=== PATIENT | female | born 1975 | race Caucasian/White ===

== ENCOUNTER 2021-03-08 18:13 | Emergency (ER) | payer MEDICAID, SELFPAY ==
[2021-03-08 18:28] VITALS: BP 158/98; PULSE 78; RESP 18; TEMP 36.3; O2SAT 95; BMI 36.8
== END 2021-03-08 19:05 | disposition left against medical advice (07) ==
PROVIDERS: Emergency Provider Emergency Medicine; PCP Internal Medicine
DX: R03.0 Elevated blood-pressure reading, without diagnosis of hypertension (principal)
CPT/HCPCS: 99281; 99282

== ENCOUNTER → 2021-05-31 09:33 | Outpatient (BNVA) | payer MEDICAID, SELFPAY | PROVIDERS: PCP Internal Medicine; Visit Provider Nurse Practitioner Family | DX: M54.16 Radiculopathy, lumbar region (principal); M53.3 Sacrococcygeal disorders, not elsewhere classified | CPT/HCPCS: 99202 ==

== ENCOUNTER 2021-08-08 13:00 | Outpatient (RCR) | payer MEDICAID, SELFPAY ==
--- NOTE | 2021-06-16 13:40 | MHC.PT.EP ---
[facility] [place] [address] Tia Hernandez [address] [phone] F: [phone] F: [phone] F: [phone] F: [phone] Physical Therapy Plan of Care Date of Evaluation: Date of Surgery: N/A Diagnosis: sacroccygeal disorders Assessment: pt's signs and symptoms appear to have both lumbar radiculopathy component as noted by reduced strength, sensation, and patellar reflex as well as SI component as seen by poor SI alignment and reproduction w/ SI testing. pt presents to physical therapy with pain, decreased range of motion, decreased strength, impaired functional mobility, impaired postural awareness, and gait deviations. pt is a fair candidate for skilled PT due to age, potential remediation of impairments, typical disease/condition progression and prognosis, comorbidities, and motivation. pt would benefit from tailored strengthening and stretching exercise program, functional training, gait training, postural re-training, neuromuscular re-education, modalities as needed for pain, equipment safety demonstration. Frequency and Duration: The patient will be seen 2x/wk for 6 wks Short Term Goals: pt will be I w/ HEP to promote self-management of condition. pt will demo proper sitting posture w/ lumbar roll to promote neutral spine w/ seated ADLs. pt will improve lumbar flexion by 25% to improve ability to don and doff socks/shoes. [place] Cleaner Goals: pt will report a statistically significant improvement in self-reported outcome measure, K[place]ney, to promote return to PLOF. pt will report <3/10 low back pain w/ standing for >15 minutes to promote return to dishes and meal prep. Treatment Plan: Modalities to reduce pain, spasms and effusion. Manual therapy to restore motion and function. Therapeutic exercise to improve strength and flexibility. Neuromuscular re-education for posture and balance. Therapeutic activities to return to functional activities of daily living. Electronically signed by: Sangita Snow PT, DPT Please sign and return to therapist. Thank you for your referral.
--- NOTE | 2021-08-28 15:01 | MHC.PT.DC ---
[facility] [place] Office [place] Office [place] Office [address] Tia Hernandez 140 [facility] [phone] F: [phone] F: [phone] F: [phone] F: [phone] Physical Therapy Discharge Report Diagnosis: sacroccygeal disorders Date of Surgery: N/A Date of Evaluation: 06/16/21 Date of Discharge: 08/28/21 Treatments to Date: 7 Cancellations to Date: 9 No Shows to Date: 3 Discharge Status: Visit Non-compliance Discharge Summary: The patient has had poor visit compliance due to multiple factors including sickness, transportation, and no call/no show. She has cancelled a total of 9 visits and no showed 3 visits. She is being discharged from this physical therapy plan of care secondary to visit non-compliance. Electronically signed by: Sangita Snow PT, DPT Please sign and return to therapist. Thank you for your referral.
== END 2021-08-28 15:01 | disposition home or self-care (01) ==
LOC: HO.PT 13:00
PROVIDERS: PCP Internal Medicine; Visit Provider Nurse Practitioner Family
DX: M53.3 Sacrococcygeal disorders, not elsewhere classified (principal)
CPT/HCPCS: 97014; 97110; 97140; 97162

== ENCOUNTER 2022-01-19 12:55 | Emergency (ER) | payer OTHER, SELFPAY ==
--- NOTE | ~2022-01-19 | XR_ITS ---
EXAMINATION: XR CERVICAL SPINE CLINICAL INFORMATION: Neck pain COMPARISON: None TECHNIQUE: AP, lateral, swimmer's lateral, open-mouth odontoid, Fuchs view cervical spine FINDINGS: The C1-C7 vertebral bodies can be visualized on the lateral projections. Suboptimal visualization of C7 due to overlying structures. Straightening of the normal cervical lordosis. No subluxation. Atlantodens interval and C1-C2 alignment are maintained. No fracture or prevertebral soft tissue swelling identified. Intervertebral disc heights are maintained. Visualized lung apices grossly clear. XR/XR cervical spine 3V IMPRESSION: 1. No subluxation or fracture. 2. Preserved intervertebral disc heights.
[2022-01-19 14:16] VITALS: BP 192/125; PULSE 91; RESP 20; TEMP 36.5; O2SAT 95; BMI 37.8
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
[2022-01-19] MEDS: Ibuprofen 600 MG TABLET PO (17:41)
[2022-01-19 17:44] VITALS: BP 194/117; PULSE 97; RESP 18; TEMP 37.2; O2SAT 97
[2022-01-19] MEDS: Cyclobenzaprine HCl 10 MG TABLET PO (19:30)
--- NOTE | 2022-01-19 20:11 | PC.NURSE ---
Reviewed discharge instructions with pt. pt verbalized understanding. Reported to RN car
== END 2022-01-19 20:14 | disposition home or self-care (01) ==
PROVIDERS: Emergency Provider Emergency Medicine; PCP Physician Assistant
DX: S13.4XXA Sprain of ligaments of cervical spine, initial encounter (principal); M54.2 Cervicalgia; M54.50 Low back pain, unspecified; X58.XXXA Exposure to other specified factors, initial encounter; Y93.9 Activity, unspecified; Y92.9 Unspecified place or not applicable; Y99.9 Unspecified external cause status; Z79.899 Other long term (current) drug therapy
CPT/HCPCS: 72040; 99283; 99284

== ENCOUNTER 2022-02-07 19:28 | Emergency (ER) | payer MEDICAID, SELFPAY ==
--- NOTE | ~2022-02-07 | XR_ITS ---
EXAMINATION: XR CHEST CLINICAL INFORMATION: Chest pain COMPARISON: Chest radiograph 11/16/2014 TECHNIQUE: Frontal view of the chest was obtained. FINDINGS: No significant abnormality is noted involving the heart, lungs, mediastinum, bony thorax or soft tissues. XR/XR chest 1V IMPRESSION: Unremarkable examination.
--- NOTE | ~2022-02-07 | CT_ITS ---
EXAMINATION: CT ANGIOGRAM OF THE CHEST WITH AND WITHOUT CONTRAST (CT PULMONARY ANGIOGRAM FOR PE) CLINICAL INFORMATION: Reason for Exam CHEST PAIN ? PE COMPARISON: 11/16/2014 TECHNIQUE: Prior to contrast administration, noncontrast localization images were obtained. Subsequently, multidetector volumetric imaging was performed from the thoracic inlet to below the diaphragms following the administration of 65 mL Omnipaque 350 intravenous contrast. No contrast reaction reported Sagittal, coronal, and MIP oblique sagittal reformatted images were obtained on the CT workstation, uploaded to PACS, and reviewed. This CT examination was performed using dose optimization techniques as appropriate, variously including the following: *Automated exposure control *Adjustment of mA and/or kV according to patient size (this includes techniques or standardized protocols for targeted exams where dose is matched to indication/reason for exam; i.e. extremities or head) *Use of iterative reconstruction technique Total exam dose-length product 357 mGy-cm FINDINGS: QUALITY OF STUDY/CONTRAST BOLUS: Satisfactory. PULMONARY ARTERIES: No central or segmental pulmonary emboli. THORACIC AORTA: No aneurysm or dissection. LUNG: No focal consolidation, nodules or masses. The central airways are patent. PLEURA: No pleural effusion or pneumothorax. MEDIASTINUM: Normal heart size. No pericardial effusion. No hilar or mediastinal lymphadenopathy. No evidence of septal bowing or right heart strain. CHEST WALL/AXILLA: No axillary or internal mammary lymphadenopathy. OSSEOUS STRUCTURES: No acute or suspicious osseous abnormality. Mild degenerative changes of the spine. UPPER ABDOMEN: Unremarkable. No reflux of contrast into the hepatic veins to suggest elevated right heart pressures. CT/CT angio chest PE protocol IMPRESSION: No pulmonary embolism or other acute intrathoracic abnormality. VTE: negative
[2022-02-07 19:46] VITALS: BP 186/123; PULSE 87; RESP 18; TEMP 36.8; O2SAT 99; BMI 36.6
[2022-02-07 19:50] VITALS: BP 197/110
--- NOTE | 2022-02-07 19:51 | ECG_ITS ---
Test Reason : CHEST PAIN Blood Pressure : / mmHG Vent. Rate : 087 BPM Atrial Rate : 087 BPM P-R Int : 174 ms QRS Dur : 086 ms QT Int : 392 ms P-R-T Axes : 034 -18 031 degrees QTc Int : 471 ms Normal sinus rhythm Moderate voltage criteria for LVH, may be normal variant ( R in aVL , Christopher product ) Borderline ECG When compared with ECG of 16-NOV-2014 15:00, Nonspecific T wave abnormality has replaced inverted T waves in Inferior leads Nonspecific T wave abnormality no longer evident in Anterior leads Referred By: Generic ED Physician Electronically Signed By:HÉCTOR MCCOY
--- NOTE | 2022-02-07 20:13 | ED.CHESTPAIN ---
HPI - Chest Pain General Chief Complaint: Chest Pain Stated Complaint: chest pain, difficulty breathing Time Seen by Provider: 02/07/22 20:12 History of Present Illness HPI narrative: Patient is a 46-year-old female present today with having chest pain over left chest over the last 3 days. The pain is constant nonradiating associated with shortness of breath no diaphoresis. Positive history of hypertension high cholesterol. No history of smoking no family history of GA no history of diabetes. 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 Currently off of medications. Patient denies any fever chills coughing congestion upper respiratory symptoms. No diaphoresis. Chest pain is not made worse with deep breath. Patient is from home. No recent travel. No leg pain. Related Data Home Medications Medication Instructions Recorded Confirmed amlodipine 10 mg tablet 10 mg PO DAILY 05/31/21 05/31/21 ergocalciferol (vitamin D2) 1,250 1,250 mcg PO QWEEK 05/31/21 05/31/21 mcg (50,000 unit) capsule hydrochlorothiazide 25 mg tablet 25 mg PO DAILY 05/31/21 05/31/21 ibuprofen 800 mg tablet 800 mg PO TID 05/31/21 05/31/21 lorazepam 0.5 mg tablet 0.5 mg PO DAILY PRN 05/31/21 05/31/21 losartan 100 mg tablet 100 mg PO DAILY 05/31/21 05/31/21 losartan 25 mg tablet 25 mg PO DAILY 05/31/21 05/31/21 naloxone 4 mg/actuation nasal 1 spray intranasal ONCE PRN 05/31/21 05/31/21 spray (Narcan) oxycodone-acetaminophen 5 mg-325 1 tab PO TID PRN 05/31/21 05/31/21 mg tablet propranolol 60 mg capsule,24 60 mg PO DAILY 05/31/21 05/31/21 hr,extended release sumatriptan succinate 50 mg tablet 50 mg PO 05/31/21 05/31/21 topiramate 25 mg tablet 25 mg PO DAILY 05/31/21 05/31/21 Previous Rx's Medication Instructions Recorded cyclobenzaprine 10 mg tablet 10 mg PO TID PRN muscle spasm #14 01/19/22 tabs Allergies Allergy/AdvReac Type Severity Reaction Status Date / Time lisinopril [LISINOPRIL] Allergy Intermediate COUGH Verified 02/07/22 19:50 Review of Systems Review of Systems: Positive chest pain constant [facility] Past Medical History Attestation statement: The following information was validated with the patient. Social History Social History Advance Directives: No Advance Directives Information Provided: Yes Physical Exam Vital Signs: Vital Signs: Last Vital Signs Temp 97.9 F 02/08/22 00:27 Pulse 91 02/08/22 00:27 Resp 14 02/08/22 00:27 BP 157/104 H 02/08/22 00:27 Pulse Ox 93 02/08/22 00:27 O2 Del Method 02/08/22 00:27 BMI result Body Mass Index 36.6 Appearance: Alert. Oriented X3. No acute distress. Eyes: Pupils equal, round and reactive to light. ENT: Pharynx normal. Neck: Normal inspection. Neck supple. No lymph nodes noted. No crepitus CVS: Normal heart rate and rhythm. Pulses normal. Normal S1 and S2 Respiratory: No respiratory distress. Breath sounds normal. No Wheezing. No rales Abdomen: Soft and nontender. No rigidity. No distention. good BS x4 Skin: Skin warm and dry. Normal skin color. Normal skin turgor. Extremities: No lower extremity edema. Neurovascular intact to all extremities. No Lacerations. No Rash Neuro: Oriented X 3. No motor deficit. No sensory deficit. Moving all extermities. No slurred speech MDM - Chest Pain MDM Narrative Medical decision making narrative: Patient has chest pain that is atypical. Positive previous history DVT in the past. CTA of the chest was grossly negative for any acute evidence of pulmonary emboli, pneumonia, pneumothorax, rib fractures. History not consistent with ACS. Patient's troponin is negative. EKG showed a sinus pattern heart rate is 80 SC QRS QT within normal limits there is no acute ST segment elevation. In the setting of a normal EKG. 46 years old atypical history negative troponin heart score is less than 3. Will discharge patient Differential Diagnosis Differential diagnosis: Likely chest pain Medical Records Data Attestation: I reviewed the patient's medical records. Lab Data Attestation: I reviewed the patient's lab results. Result diagrams: 02/07/22 22:38 02/07/22 22:38 Labs: Lab Results 02/07/22 02/07/22 02/07/22 Range/Units 22:38 22:38 22:38 WBC 13.4 H (4.8-10.8) X10*3/uL RBC 5.45 (4.20-5.50) X10*6/uL Hgb 14.0 (12.0-16.0) g/dl Hct 42.8 (37.0-47.0) % MCV 78.5 L (80.0-98.0) fL MCH 25.7 L (27.0-33.0) pg MCHC 32.7 (31.0-35.0) g/dl RDW 14.3 (11.0-16.0) % Plt Count 332 (160-400) X10*3/uL MPV 9.6 (9.4-12.3) fL Immature Gran % (Auto) 0.7 H (0.0-0.4) % Neut % (Auto) 69.0 (45-73) % Lymph % (Auto) 20.8 (20-40) % [place] % (Auto) 5.8 (2-11) % Eos % (Auto) 3.1 (0-4) % Baso % (Auto) 0.6 (0-2) % Lymph # (Auto) 2.8 (1.2-4.9) X10*3/uL [place] # (Auto) 0.8 (0.1-1.2) X10*3/uL Eos # (Auto) 0.4 (0.0-0.4) X10*3/uL Baso # (Auto) 0.1 (0.0-0.2) X10*3/uL Abs Immat Gran (auto) 0.10 H (0.00-0.03) X10*3/uL Absolute Neuts (auto) 9.2 H (2.0-8.3) x10*3/uL Absolute Nucleated RBC 0.000 (0.0-0.012) X10*3/uL Nucleated RBC % (auto) 0.0 (0.0-0.2) /100WBC Sodium 139 (135-145) mmol/L Potassium 4.0 (3.3-5.1) mmol/L Chloride 102 (96-108) mmol/L Carbon Dioxide 24 (22-29) mmol/L Anion Gap 17 (12-20) BUN 11 (9-16) mg/dL Creatinine 0.68 (0.5-1.4) mg/dL Estim Creat Clear Calc 119.1 Estimated GFR > 60 Random Glucose 91 (60-115) mg/dL Calcium 9.7 (8.4-10.2) mg/dL Troponin I High Sens 3.8 (<3.5-17.0) ng/L Discharge Plan Discharge Clinical Impression: Chest pain Patient Disposition: Home, Self-Care Instructions: Chest Pain (DC), Hypertension (ED) Prescriptions: No Action cyclobenzaprine 10 mg tablet 10 mg PO TID PRN (Reason: muscle spasm) Qty: 14 0RF hydrochlorothiazide 25 mg tablet 25 mg PO DAILY topiramate 25 mg tablet 25 mg PO DAILY oxycodone-acetaminophen 5-325 mg tablet 1 tab PO TID PRN losartan 25 mg tablet 25 mg PO DAILY ergocalciferol (vitamin D2) 1,250 mcg (50,000 unit) capsule 1,250 mcg PO QWEEK lorazepam 0.5 mg tablet 0.5 mg PO DAILY PRN propranolol 60 mg capsule,extended release 24 hr 60 mg PO DAILY naloxone [Narcan] 4 mg/actuation spray,non-aerosol 1 spray intranasal ONCE PRN ibuprofen 800 mg tablet 800 mg PO TID losartan 100 mg tablet 100 mg PO DAILY amlodipine 10 mg tablet 10 mg PO DAILY sumatriptan succinate 50 mg tablet 50 mg PO Referrals: Opal Pack PA [Primary Care Provider] -
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
--- NOTE | 2022-02-07 21:03 | PC.NURSE ---
Pt. stable, with no distress, on php wordpress developer and SPO2 monitor at this time.
--- NOTE | 2022-02-07 21:33 | PC.NURSE ---
Multiple attempts made by Lucian De Santiago RN for IV access and ultrasound-guided IV access. IV access unable to be obtained. Provider notified
--- NOTE | 2022-02-07 21:44 | PC.NURSE ---
WILFRED Berry placed 18 in (R) AC via ultrasound-guidance at bedside
--- NOTE | 2022-02-07 22:42 | PC.NURSE ---
Labs sent as ordered. BP 218/144 - MD Antonio notified and awaiting orders at this time.
[2022-02-07 22:45] LABS: MANUAL DIFF FLAG NO
[2022-02-07 22:46] LABS: Basophils Absolute Auto 0.1 X10*3/uL (0.0-0.2); Basophils Percent Auto 0.6 % (0-2); Eosinophils Absolute Auto 0.4 X10*3/uL (0.0-0.4); Eosinophils Percent Auto 3.1 % (0-4); Hematocrit 42.8 % (37.0-47.0); Imm Gran Pct Auto 0.7 % (0.0-0.4); Lymphocytes Absolute Auto 2.8 X10*3/uL (1.2-4.9); Lymphocytes Percent Auto 20.8 % (20-40); Mean Corpuscular HGB Conc 32.7 g/dl (31.0-35.0); Mean Corpuscular Hemoglobin 25.7 pg (27.0-33.0); Mean Corpuscular Volume 78.5 fL (80.0-98.0); Mean Platelet Volume 9.6 fL (9.4-12.3); Monocytes Absolute Auto 0.8 X10*3/uL (0.1-1.2); Monocytes Percent Auto 5.8 % (2-11); Neutrophils Absolute Auto 9.2 x10*3/uL (2.0-8.3); Platelet Count 332 X10*3/uL (160-400); Red Blood Count 5.45 X10*6/uL (4.20-5.50); Red Cell Distribution Width 14.3 % (11.0-16.0); White Blood Count 13.4 X10*3/uL (4.8-10.8)
[2022-02-07] MEDS: amLODIPine Besylate 10 MG TABLET PO (22:52)
[2022-02-07] MEDS: Losartan Potassium 25 MG TABLET PO (22:52)
[2022-02-07 22:59] LABS: Anion Gap 17 (12-20); Blood Urea Nitrogen 11 mg/dL (9-16); Calcium 9.7 mg/dL (8.4-10.2); Carbon Dioxide 24 mmol/L (22-29); Chloride 102 mmol/L (96-108); Creatinine Clr Calc Pharmacy 119.1; Estimated Glomerular Filt Rate > 60; Glucose Random 91 mg/dL (60-115); Sodium 139 mmol/L (135-145)
[2022-02-07 23:07] LABS: Troponin-I High Sensitivity 3.8 ng/L (<3.5-17.0)
[2022-02-07] MEDS: iohexoL 350 MG/ML 100 ML INFUS..BTL 60 ML IV (23:27)
[2022-02-08] MEDS: HYDROmorphone HCl 0.5 MG/0.5 ML SYRINGE IVPUSH (00:18)
[2022-02-08 00:27] VITALS: BP 157/104; PULSE 91; RESP 14; TEMP 36.6; O2SAT 93
--- NOTE | 2022-02-08 00:44 | PC.NURSE ---
pt a&o, no sob or chest pain. Pt was medicated for headache per Jul. Pt on bedside monitor. Will continue to monitor blood pressure. Pt taken to CT Scan
[2022-02-08 01:25] LABS: Troponin-I High Sensitivity < 3.5 ng/L (<3.5-17.0)
[2022-02-08 02:07] VITALS: BP 159/102; PULSE 94; O2SAT 98
--- NOTE | 2022-02-08 02:07 | PC.NURSE ---
provider aware of blood pressure. Okay for pt to be discharged home. Reviewed discharge instructions with pt. pt verbalized understanding. Pt denies any sob or chest pain. Pt able to ambulate with a steady at time of discharge.
== END 2022-02-08 02:10 | disposition home or self-care (01) ==
PROVIDERS: Emergency Provider Emergency Medicine Emergency Medical Services; PCP Physician Assistant
DX: R07.89 Other chest pain (principal); R06.02 Shortness of breath; Z79.899 Other long term (current) drug therapy
CPT/HCPCS: 36415; 71045; 71275; 80048; 84484; 85025; 93005; 96374; 99284; 99285; J1170; Q9967

== ENCOUNTER 2023-07-04 14:42 | Emergency (ER) | payer MEDICAID, SELFPAY ==
--- NOTE | ~2023-07-04 | CT_ITS ---
EXAMINATION: CT HEAD WITHOUT CONTRAST CLINICAL INFORMATION: Frontal headache. COMPARISON: CT head from 11/17/2013. TECHNIQUE: Contiguous axial imaging was performed from the skull base to vertex without intravenous administration of contrast. This CT examination was performed using dose optimization techniques as appropriate, variously including the following: *Automated exposure control. *Adjustment of mA and/or kV according to patient size (this includes techniques or standardized protocols for targeted exams where dose is matched to indication/reason for exam; i.e. extremities or head). *Use of iterative reconstruction technique. DLP: 725 mGy-cm FINDINGS: There is no evidence of acute intracranial hemorrhage or edematous territorial infarction. Kwan-white matter differentiation is preserved. Few nonspecific foci of hypoattenuation in the periventricular and deep white matter. The ventricles are normal in morphology and size. No evidence for obstructive hydrocephalus. No abnormal mass effect or midline shift. No extra-axial fluid collections. No acute soft tissue or osseous abnormalities. Mild mucosal thickening of the paranasal sinuses. Minimal leftward nasal septal deviation. The mastoid air cells and middle ear cavities are clear. CT/CT head/brain wo IV con IMPRESSION: 1. No evidence of acute intracranial hemorrhage or edematous territorial infarction. 2. Mild nonspecific white matter changes.
--- NOTE | 2023-07-04 14:45 | ECG_ITS ---
Test Reason : CHEST PAIN Blood Pressure : / mmHG Vent. Rate : 099 BPM Atrial Rate : 099 BPM P-R Int : 170 ms QRS Dur : 086 ms QT Int : 370 ms P-R-T Axes : 033 -23 033 degrees QTc Int : 474 ms Normal sinus rhythm Possible Left atrial enlargement Left ventricular hypertrophy ( R in aVL , Christopher product ) Cannot rule out Septal infarct , age undetermined Abnormal ECG When compared with ECG of 07-FEB-2022 20:14, Minimal criteria for Septal infarct are now Present Referred By: Generic ED Physician Electronically Signed By:IRAM MORAN
[2023-07-04 15:27] VITALS: BP 208/135; PULSE 102; RESP 18; TEMP 36.1; O2SAT 98; BMI 37.9
--- NOTE | 2023-07-04 15:27 | ED_ITS ---
HPI - Chest Pain General Chief Complaint: Chest Pain Stated Complaint: Chest pain sent by PCP Time Seen by Provider: 07/04/23 17:31 Source: patient, RN notes reviewed and old records reviewed Mode of arrival: ambulatory Limitations: no limitations History of Present Illness HPI narrative: 48 old female with past medical history significant for hypertension presents for evaluation of headache Patient reports that she has had chronic headaches and migraines. She states for the last 24 hours she has had a severe frontal headache She states her blood pressures have been elevated as high as 208/143 She takes propranolol, nifedipine, losartan, chlorthalidone to manage her blood pressure and reports she has been compliant with the medications She reports occasional blurry vision Denies any fevers, headaches pain She called her PCP today and was referred to the ER The patient have chest pain but did have chest pain earlier today No other complaints or concerns at this time Related Data Home Medications Medication Instructions Recorded Confirmed amlodipine 10 mg tablet 10 mg PO DAILY 05/31/21 05/31/21 ergocalciferol (vitamin D2) 1,250 1,250 mcg PO QWEEK 05/31/21 05/31/21 mcg (50,000 unit) capsule hydrochlorothiazide 25 mg tablet 25 mg PO DAILY 05/31/21 05/31/21 ibuprofen 800 mg tablet 800 mg PO TID 05/31/21 05/31/21 lorazepam 0.5 mg tablet 0.5 mg PO DAILY PRN 05/31/21 05/31/21 losartan 100 mg tablet 100 mg PO DAILY 05/31/21 05/31/21 losartan 25 mg tablet 25 mg PO DAILY 05/31/21 05/31/21 naloxone 4 mg/actuation nasal 1 spray intranasal ONCE PRN 05/31/21 05/31/21 spray (Narcan) oxycodone-acetaminophen 5 mg-325 1 tab PO TID PRN 05/31/21 05/31/21 mg tablet propranolol 60 mg capsule,24 60 mg PO DAILY 05/31/21 05/31/21 hr,extended release sumatriptan succinate 50 mg tablet 50 mg PO 05/31/21 05/31/21 topiramate 25 mg tablet 25 mg PO DAILY 05/31/21 05/31/21 Previous Rx's Medication Instructions Recorded cyclobenzaprine 10 mg tablet 10 mg PO TID PRN muscle spasm #14 01/19/22 tabs taffjvwtqw-uniwwyzariedr-cugremip 1 cap PO Q4-6H PRN headache #15 07/04/23 50 mg-300 mg-40 mg capsule caps (Fioricet) nifedipine 60 mg tablet,extended 60 mg PO DAILY #30 tabs 07/04/23 release 24 hr Allergies Allergy/AdvReac Type Severity Reaction Status Date / Time lisinopril [LISINOPRIL] Allergy Intermediate COUGH Verified 07/04/23 15:27 Review of Systems 2 Constitutional: Constitutional: Denies body ache(s), Denies chills, Denies fever(s) and Reports headache(s) Eyes: Eyes: Reports blurry vision ENT: Denies dizziness and Reports headache(s) Cardiovascular: Cardiovascular: Reports chest pain and Denies dyspnea Respiratory: Respiratory: Denies cough and Denies dyspnea Gastrointestinal: Gastrointestinal: Denies abdominal pain, Denies nausea and Denies vomiting Musculoskeletal: Musculoskeletal: Denies back pain Integumentary/Breasts: Skin/Breast: Denies rash Neurologic: Denies dizziness and Reports headache(s) [facility] Social History Social History Patient Tobacco Use Status: Never used Tobacco Smoked in Last 30 Days: No Use of substances other than those prescribed or required for medical reasons: No Advance Directives: No Advance Directives Information Provided: No Patient : No Physical Exam 2 Vital Signs: Vital Signs: Last Vital Signs Temp 97.6 F 07/04/23 19:46 Pulse 94 07/04/23 19:46 Resp 24 H 07/04/23 19:46 BP 174/125 H 07/04/23 19:46 Pulse Ox 99 07/04/23 19:46 O2 Del Method Room Air 07/04/23 19:46 BMI result Body Mass Index 37.9 Const: General: healthy appearing, comfortable, no acute distress, alert and awake Nutritional Appearance: well nourished Orientation/consciousness: p atient oriented x3 HEENT: Head: Yes normocephalic and Yes atraumatic Eyes: Eyelids: Yes eyelids normal Conjunctivae: conjunctivae normal S clerae: sclerae normal Corneas: corneas normal Pupils: Equal, round and reactive pupils present EOM: EOMs intact bilaterally Neck: Neck: Yes full ROM Resp: Effort & Inspection: normal respiratory effort, able to speak in complete sentences and not labored Cardio: Rate: regular rate Rhythm: regular rhythm GI: Inspection: No distended Palpation (GI): Soft to palpation, not firm, nontender, no guarding and not rigid Skin: General skin exam: no rashes or lesions noted and elasticity normal Neuro: General: patient oriented x3 Cranial nerves: Yes CN's II-XII intact bilaterally, Yes Equal, round and reactive pupils present and Yes Bilaterally intact EOM present Cognition (Neuro): normal cognition Course Course Course Narrative: RME: Mid-sternal chest pain, shortness of breath, left arm tingling, and nausea. Yesterday was intermittent and today constant. BP elevated at work > 200 SBP. Thought it was initially anxiety but took Lorazepam with no relief in symptoms. Took her scheduled anti-hypertensive meds as well as oxycodone with no relief in symptoms Reevaluation(s) Reevaluation #1: Patient's workup largely unremarkable, her ESR is normal at 18. Her CT brain did not show any acute findings. Patient's blood pressure is improved from arrival but still somewhat elevated. We will have her increase her nifedipine to 60 mg daily from 30 mg daily. Will discharge her home with Fioricet. Time: 20:30 Medications Administered Discontinued Medications Generic Name Dose Route Start Last Admin Trade Name Freq PRN Reason Stop Dose Admin Acetaminophen/Butalbital/Caffeine 1 tab 07/04/23 18:18 07/04/23 19:18 Butalb/Acetamin/Caff 50/325/40 Tablet PO 07/04/23 18:19 1 tab ONCE ONE Administration Medical Decision Making Medical Decision Making [facility] Narrative: 48-year-old female presents for evaluation of headache and dizziness. Her blood pressure on arrival to the ED was 208/135. At the time my evaluation it has decreased to 165/105 without any intervention. Given the change in her headaches will get a CT scan of the brain. Currently her blood pressure has improved so we will not address this with any further medications at this time. Patient's labs are reassuring, I added on a random cortisol level as well as an ESR. I have a lower suspicion for temporal arteritis however did added on due to headache with visual changes Differential Diagnosis Differential Diagnoses: The differential diagnosis associated with the presentation includes Acute headache Hypertension Chest pain ACS less likely Celina disease Hyperglycemia Lab Data [facility] Lab Attestation statement: I reviewed the patient's lab results. Patient has a slight leukocytosis to 11.3, no other hematologic abnormalities. No significant electrolyte abnormalities. Normal renal function. Her glucose is elevated to 161 and a random draw some degree of prediabetes that she has not eaten for 6 hours prior to her labs being drawn. 07/04/23 15:51 07/04/23 15:51 Labs: Lab Results 07/04/23 Range/Units 15:51 WBC 11.3 H (4.8-10.8) X10*3/uL RBC 5.44 (4.20-5.50) X10*6/uL Hgb 13.9 (12.0-16.0) g/dl Hct 43.5 (37.0-47.0) % MCV 80.0 (80.0-98.0) fL MCH 25.6 L (27.0-33.0) pg MCHC 32.0 (31.0-35.0) g/dl RDW 14.3 (11.0-16.0) % Plt Count 347 (160-400) X10*3/uL MPV 9.8 (9.4-12.3) fL Immature Gran % (Auto) 0.5 H (0.0-0.4) % Neut % (Auto) 72.3 (45-73) % Lymph % (Auto) 19.3 L (20-40) % Lincoln % (Auto) 4.9 (2-11) % Eos % (Auto) 2.6 (0-4) % Baso % (Auto) 0.4 (0-2) % Lymph # (Auto) 2.2 (1.2-4.9) X10*3/uL Lincoln # (Auto) 0.6 (0.1-1.2) X10*3/uL Eos # (Auto) 0.3 (0.0-0.4) X10*3/uL Baso # (Auto) 0.0 (0.0-0.2) X10*3/uL Abs Immat Gran (auto) 0.06 H (0.00-0.03) X10*3/uL Absolute Neuts (auto) 8.2 (2.0-8.3) x10*3/uL Absolute Nucleated RBC 0.000 (0.0-0.012) X10*3/uL Nucleated RBC % (auto) 0.0 (0.0-0.2) /100WBC ESR 18 (0-20) MM/HR Sodium 138 (135-145) mmol/L Potassium 3.8 (3.3-5.1) mmol/L Chloride 102 (96-108) mmol/L Carbon Dioxide 27 (22-29) mmol/L Anion Gap 13 (12-20) BUN 13 (9-16) mg/dL Creatinine 0.87 (0.5-1.4) mg/dL Estim Creat Clear Calc 92.9 Estimated GFR > 60 Random Glucose 161 H (60-115) mg/dL Calcium 9.3 (8.4-10.2) mg/dL Magnesium 1.8 (1.6-2.6) mg/dL Total Bilirubin 0.6 (0.0-1.0) mg/dL AST 18 (5-31) U/L ALT 32 H (0-31) U/L Alkaline Phosphatase 72 (39-117) U/L Troponin I High Sens 4.4 (<3.5-17.0) ng/L Total Protein 8.3 H (6.5-8.0) g/dL Albumin 4.1 (3.5-5.0) g/dL Random Cortisol 5.8 ug/dL Discharge Plan Discharge Clinical Impression: Headache, Hypertension Patient Disposition: Home, Self-Care Instructions: Acute Headache (ED), Chronic Hypertension (ED) Additional Instructions: Take Fioricet as needed for further headaches. I would recommend increasing your nifedipine to 60 mg daily to help control your blood pressure Follow-up with your primary doctor Your blood work and CT scan that were done today were reassuring Return for new or worsening symptoms Prescriptions: New nifedipine 60 mg tablet extended release 24hr 60 mg PO DAILY Qty: 30 0RF eskfguhlvw-dlhmnjnwdfuch-kcif [Fioricet] 50-300-40 mg capsule 1 cap PO Q4-6H PRN (Reason: headache) Qty: 15 0RF No Action cyclobenzaprine 10 mg tablet 10 mg PO TID PRN (Reason: muscle spasm) Qty: 14 0RF hydrochlorothiazide 25 mg tablet 25 mg PO DAILY topiramate 25 mg tablet 25 mg PO DAILY oxycodone-acetaminophen 5-325 mg tablet 1 tab PO TID PRN losartan 25 mg tablet 25 mg PO DAILY ergocalciferol (vitamin D2) 1,250 mcg (50,000 unit) capsule 1,250 mcg PO QWEEK lorazepam 0.5 mg tablet 0.5 mg PO DAILY PRN propranolol 60 mg capsule,extended release 24 hr 60 mg PO DAILY naloxone [Narcan] 4 mg/actuation spray,non-aerosol 1 spray intranasal ONCE PRN ibuprofen 800 mg tablet 800 mg PO TID losartan 100 mg tablet 100 mg PO DAILY amlodipine 10 mg tablet 10 mg PO DAILY sumatriptan succinate 50 mg tablet 50 mg PO
[2023-07-04 15:55] LABS: MANUAL DIFF FLAG NO
[2023-07-04 15:56] LABS: Basophils Percent Auto 0.4 % (0-2); Eosinophils Absolute Auto 0.3 X10*3/uL (0.0-0.4); Eosinophils Percent Auto 2.6 % (0-4); Hematocrit 43.5 % (37.0-47.0); Hemoglobin 13.9 g/dl (12.0-16.0); Imm Gran Abs Auto 0.06 X10*3/uL (0.00-0.03); Imm Gran Pct Auto 0.5 % (0.0-0.4); Lymphocytes Absolute Auto 2.2 X10*3/uL (1.2-4.9); Lymphocytes Percent Auto 19.3 % (20-40); Mean Corpuscular Hemoglobin 25.6 pg (27.0-33.0); Mean Platelet Volume 9.8 fL (9.4-12.3); Monocytes Absolute Auto 0.6 X10*3/uL (0.1-1.2); Monocytes Percent Auto 4.9 % (2-11); Neutrophils Absolute Auto 8.2 x10*3/uL (2.0-8.3); Neutrophils Percent Auto 72.3 % (45-73); Platelet Count 347 X10*3/uL (160-400); Red Blood Count 5.44 X10*6/uL (4.20-5.50); Red Cell Distribution Width 14.3 % (11.0-16.0); White Blood Count 11.3 X10*3/uL (4.8-10.8)
[2023-07-04 16:09] LABS: Alanine Aminotransferase 32 U/L (0-31); Albumin Level 4.1 g/dL (3.5-5.0); Alkaline Phosphatase 72 U/L (39-117); Anion Gap 13 (12-20); Aspartate Amino Transferase 18 U/L (5-31); Bilirubin Total 0.6 mg/dL (0.0-1.0); Blood Urea Nitrogen 13 mg/dL (9-16); Calcium 9.3 mg/dL (8.4-10.2); Carbon Dioxide 27 mmol/L (22-29); Chloride 102 mmol/L (96-108); Creatinine Clr Calc Pharmacy 92.9; Estimated Glomerular Filt Rate > 60; Glucose Random 161 mg/dL (60-115); Magnesium 1.8 mg/dL (1.6-2.6); Potassium 3.8 mmol/L (3.3-5.1); Sodium 138 mmol/L (135-145); Total Protein 8.3 g/dL (6.5-8.0)
[2023-07-04 16:16] LABS: Troponin-I High Sensitivity 4.4 ng/L (<3.5-17.0)
[2023-07-04 17:43] VITALS: BP 165/105; PULSE 95; RESP 20; TEMP 36.7; O2SAT 95
--- NOTE | 2023-07-04 17:44 | MHC.EDTECH ---
THIS PCT JUST ASSUMED CARE OF PT ,VITALS TAKEN ,PT WAS HOOKED UP TO CUSTOMER SECURITY CLERK ,ZENON MERINO IS AW2ARE OF PATIENT HIGH BP .
[2023-07-04 18:25] LABS: Cortisol Random 5.8 ug/dL
[2023-07-04 18:42] LABS: Erythrocyte Sedimentation Rate 18 MM/HR (0-20)
[2023-07-04] MEDS: Butalb/Acetamin/Caff 50/325/40 TABLET 1 TAB PO (19:18)
[2023-07-04 19:46] VITALS: BP 174/125; PULSE 94; RESP 24; TEMP 36.4; O2SAT 99
[2023-07-04] MEDS: oxyCODONE HCl Immed Release 5 MG TABLET PO (20:52)
[2023-07-04] MEDS: Acetaminophen 325 MG TABLET PO (20:52)
== END 2023-07-04 20:54 | disposition home or self-care (01) ==
PROVIDERS: Nurse Practitioner Family; Physician Assistant; Emergency Provider Internal Medicine; PCP Physician Assistant
DX: R07.89 Other chest pain (principal); R51.9 Headache, unspecified; I10 Essential (primary) hypertension; Z79.899 Other long term (current) drug therapy
CPT/HCPCS: 36415; 70450; 80053; 82533; 83735; 84484; 85025; 85652; 93005; 99284; 99285

== ENCOUNTER → 2023-07-04 14:45 | Outpatient (BNV) | payer MEDICAID, SELFPAY | PROVIDERS: Emergency Provider Internal Medicine; PCP Physician Assistant; Visit Provider Internal Medicine | DX: R94.31 Abnormal electrocardiogram [ECG] [EKG] (principal) | CPT/HCPCS: 93010 ==

== ENCOUNTER 2023-12-23 22:02 | Emergency (ER) | payer MEDICAID, SELFPAY ==
--- NOTE | ~2023-12-23 | XR_ITS ---
EXAMINATION: XR CHEST CLINICAL INFORMATION: Shortness of breath COMPARISON: 02/07/2022 TECHNIQUE: Frontal view of the chest was obtained. FINDINGS: The lungs are clear with no focal consolidation. No evidence of pneumothorax, pulmonary edema, or pleural effusions. Prominent cardiomediastinal silhouette appears similar to prior. No acute osseous findings are seen. XR/XR chest 1V IMPRESSION: No acute findings. Prominent cardiomediastinal silhouette, similar to prior.
--- NOTE | ~2023-12-23 | CT_ITS ---
EXAMINATION: CT head/brain wo IV con CLINICAL INFORMATION: Reason for Exam headache and dizziness COMPARISON: CT head without contrast 07/04/2023 TECHNIQUE: Contiguous axial imaging was performed from the skull base to vertex without intravenous contrast. Sagittal and coronal reformatted images were obtained. This CT examination was performed using dose optimization techniques as appropriate, variously including the following: * Automated exposure control * Adjustment of mA and/or kV according to patient size (this includes techniques or standardized protocols for targeted exams where dose is matched to indication/reason for exam; i.e. extremities or head) Use of iterative reconstruction technique DLP: 698.95 mGy-cm FINDINGS: No acute osseous or soft tissue abnormality. The mastoid air cells and visualized portions of the paranasal sinuses are well aerated. There is no evidence of acute intracranial hemorrhage or territorial infarction. No abnormal mass effect or midline shift is seen. Kwan to white matter differentiation is well preserved. No extra-axial fluid collections are identified. No hydrocephalus. No significant volume loss. There is no abnormal attenuation within the brain parenchyma. CT/CT head/brain wo IV con IMPRESSION: No acute intracranial abnormality including hemorrhage, mass effect, hydrocephalus, or acute territorial edematous infarction.
--- NOTE | ~2023-12-23 | CT_ITS ---
EXAMINATION: CT ABDOMEN AND PELVIS WITH CONTRAST CLINICAL INFORMATION: Abdominal pain COMPARISON: 02/03/2019 TECHNIQUE: Multidetector volumetric images were obtained from the superior aspect of the liver through the pubic symphysis following administration 85 mL of Omnipaque 350 intravenous contrast. Sagittal and coronal reformatted images were obtained on the technologist's workstation. Oral contrast: No This CT examination was performed using dose optimization techniques as appropriate, variously including the following: *Automated exposure control *Adjustment of mA and/or kV according to patient size (this includes techniques or standardized protocols for targeted exams where dose is matched to indication/reason for exam; i.e. extremities or head) *Use of iterative reconstruction technique DLP: 671 mGy-cm FINDINGS: LUNG BASES: Mild bibasilar atelectasis. Mild cardiomegaly. LIVER, GALLBLADDER, AND BILIARY TREE: The liver demonstrates mild hypoattenuation suggesting steatosis. No focal hepatic lesion or biliary ductal dilatation is present. Gallbladder appears partially contracted, suboptimally assessed. PANCREAS: Unremarkable. SPLEEN: Unremarkable. ADRENAL GLANDS: Unremarkable. KIDNEYS AND URETERS: Bilateral nephrograms are symmetric. No hydronephrosis or obstructing calculus identified. A couple punctate bilateral renal calculi are noted. Small left lower pole renal cyst; no follow-up recommended. BLADDER: Unremarkable. GASTROINTESTINAL TRACT: No evidence of bowel obstruction or significant wall thickening. The appendix is unremarkable. No free air is seen. ABDOMINAL WALL: No significant hernia is appreciated. LYMPH NODES: Normal. VASCULAR: Unremarkable. PELVIC VISCERA: Status post hysterectomy. Trace pelvic free fluid. OSSEOUS STRUCTURES: Unremarkable. CT/CT abdomen pelvis w IV con IMPRESSION: 1. Trace nonspecific pelvic free fluid, which may be physiologic. Otherwise no acute findings identified in the abdomen/pelvis. 2. Mild cardiomegaly.
[2023-12-23 23:04] VITALS: BP 182/118; PULSE 98; RESP 18; TEMP 36.6; O2SAT 95; BMI 38.6
[2023-12-23 23:52] LABS: MANUAL DIFF FLAG NO
[2023-12-23 23:53] LABS: Basophils Absolute Auto 0.1 X10*3/uL (0.0-0.2); Basophils Percent Auto 0.7 % (0-2); Eosinophils Absolute Auto 0.4 X10*3/uL (0.0-0.4); Eosinophils Percent Auto 3.2 % (0-4); Hematocrit 42.9 % (37.0-47.0); Imm Gran Abs Auto 0.13 X10*3/uL (0.00-0.03); Lymphocytes Absolute Auto 2.8 X10*3/uL (1.2-4.9); Mean Corpuscular HGB Conc 32.6 g/dl (31.0-35.0); Mean Corpuscular Hemoglobin 25.9 pg (27.0-33.0); Mean Corpuscular Volume 79.3 fL (80.0-98.0); Mean Platelet Volume 9.7 fL (9.4-12.3); Monocytes Percent Auto 7.6 % (2-11); Neutrophils Absolute Auto 8.9 x10*3/uL (2.0-8.3); Neutrophils Percent Auto 66.5 % (45-73); Platelet Count 300 X10*3/uL (160-400); Red Blood Count 5.41 X10*6/uL (4.20-5.50); Red Cell Distribution Width 14.8 % (11.0-16.0); White Blood Count 13.3 X10*3/uL (4.8-10.8)
[2023-12-24 00:10] LABS: Alanine Aminotransferase 33 U/L (0-31); Albumin Level 4.2 g/dL (3.5-5.0); Alkaline Phosphatase 69 U/L (39-117); Anion Gap 12 (12-20); Aspartate Amino Transferase 16 U/L (5-31); Bilirubin Total 0.6 mg/dL (0.0-1.0); Blood Urea Nitrogen 13 mg/dL (9-16); Calcium 9.7 mg/dL (8.4-10.2); Carbon Dioxide 25 mmol/L (22-29); Chloride 105 mmol/L (96-108); Creatinine Clr Calc Pharmacy 97.2; Estimated Glomerular Filt Rate > 60; Glucose Random 113 mg/dL (60-115); Potassium 3.6 mmol/L (3.3-5.1); Sodium 138 mmol/L (135-145)
[2023-12-24 00:31] LABS: Appearance Urine Clear; Color Urine Yellow; Glucose Urine UA Negative (Negative); Leukocyte Esterase Urine Negative (Negative); Nitrite Urine Negative (Negative); UMIC TRIGGER UACC YES; UPreg QC Valid YES; Urine Blood Trace (Negative); Urine Ketones Trace mg/dL (Negative); Urine Pregnancy NEGATIVE (NEGATIVE); Urine Protein Trace mg/dL (Neg-Trace)
[2023-12-24 00:33] LABS: Bacteria Urine 1+ (None Seen); Hyaline Casts Urine 0-2 /LPF (0-2); WBC Urine 0-5 /HPF (0-5)
[2023-12-24 00:45] VITALS: BP 196/116; PULSE 98; RESP 14; TEMP 36.9; O2SAT 96
--- NOTE | 2023-12-24 00:57 | ED_ITS ---
HPI - Abdominal Pain General Chief Complaint: Abdominal Pain Stated Complaint: abd pain Time Seen by Provider: 12/24/23 00:44 Source: patient Mode of arrival: ambulatory Limitations: no limitations History of Present Illness ED Provider: Yemi MCGINNIS HPI narrative: 48 year old female hx of obesity, htn, hld, chronic pain, migranes, presents w/ abd pain X 1.5 weeks located mainly in the epigastric region without radiaiton of symptoms. She reports she hasnt been feeling right and it is interfeering with her ADLS. Reports a/c fevers T max 100F, nausea, dizziness ( described as room spinning), headaches, fatigue, malaise and myalgias. She tells me she just hasnt been feeling herself. Denies CP, sob, vomiting, changes in urianry or bowel habits, sick contacts, head truama, recent illness. Related Data Home Medications ?Medication ?Instructions ?Recorded ?Confirmed amlodipine 10 mg tablet 10 mg PO DAILY 05/31/21 05/31/21 ergocalciferol (vitamin D2) 1,250 1,250 mcg PO QWEEK 05/31/21 05/31/21 mcg (50,000 unit) capsule hydrochlorothiazide 25 mg tablet 25 mg PO DAILY 05/31/21 05/31/21 ibuprofen 800 mg tablet 800 mg PO TID 05/31/21 05/31/21 lorazepam 0.5 mg tablet 0.5 mg PO DAILY PRN 05/31/21 05/31/21 losartan 100 mg tablet 100 mg PO DAILY 05/31/21 05/31/21 losartan 25 mg tablet 25 mg PO DAILY 05/31/21 05/31/21 naloxone 4 mg/actuation nasal 1 spray intranasal ONCE PRN 05/31/21 05/31/21 spray (Narcan) oxycodone-acetaminophen 5 mg-325 1 tab PO TID PRN 05/31/21 05/31/21 mg tablet propranolol 60 mg capsule,24 60 mg PO DAILY 05/31/21 05/31/21 hr,extended release sumatriptan succinate 50 mg tablet 50 mg PO 05/31/21 05/31/21 topiramate 25 mg tablet 25 mg PO DAILY 05/31/21 05/31/21 Previous Rx's ?Medication ?Instructions ?Recorded cyclobenzaprine 10 mg tablet 10 mg PO TID PRN muscle spasm #14 01/19/22 tabs [id number]-[id number] 1 cap PO Q4-6H PRN headache #15 07/04/23 50 mg-300 mg-40 mg capsule caps (Fioricet) nifedipine 60 mg tablet,extended 60 mg PO DAILY #30 tabs 07/04/23 release 24 hr Allergies Allergy/AdvReac Type Severity Reaction Status Date / Time lisinopril [LISINOPRIL] Allergy Intermediate COUGH Verified 12/23/23 23:04 Review of Systems Review of Systems Yes all other systems are reviewed and are negative [facility] Past Medical History Attestation statement: The following information was validated with the patient. Source: old records reviewed and nursing notes reviewed Social History Social History Patient Tobacco Use Status: Never used Tobacco Advance Directives: No Advance Directives Information Provided: Yes Physical Exam ED Vital Signs: Vital Signs - 24 hr 12/23/23 23:04 12/24/23 00:45 Temperature 97.9 F 98.5 F Pulse Rate 98 98 Respiratory Rate 18 14 Blood Pressure 182/118 H 196/116 H Pulse Oximetry 95 96 Oxygen Delivery Method Room Air Room Air BMI result Body Mass Index 38.6 htn ? from pain Appearance: Alert.? Oriented X3.? No acute distress.? Head: Normocephalic, atraumatic, no step-offs or deformities Eyes: Pupils equal, round and reactive to light.? Neck: Normal inspection.? Neck supple.? CVS: Normal heart rate and rhythm.? Pulses normal.? Respiratory: No respiratory distress.? Breath sounds normal.? Abdomen: Soft and epigastric discomfort Skin: Skin warm and dry.? Normal skin color.? Normal skin turgor.? Extremities: No lower extremity edema.? No calf ttp. 5/5 strength to bilateral upper and lower extremities Back: No midline tenderness, no C-spine tenderness, full range of motion, no CVA tenderness bilaterally Neuro: Oriented X 3.? No motor deficit.? No sensory deficit. CN 2-12 intact Course Reevaluation(s) Reevaluation #1: CBC with slight leukocytosis 13.3 no left shift. Chemistry no acute findings needing intervention. UA with 1+ bacteria will treat for a UTI outpatient. Urine negative. Patient also has history of partial hysterectomy. Chest x-ray no acute findings. CT head, abdomen pending. Orthostatic vital signs pending. Flu, COVID, RSV pending. Troponin EKG pending. Sign out to pending the above listed. Time: 01:37 Medical Decision Making Medical Decision Making [facility] Narrative: 0058 48-year-old female presents with abdominal pain over the past week and a half, reports abdominal distention, fatigue, malaise, nausea. Reports she feels something moving in her stomach. Physical exam with epigastric discomfort . Neurological function intact. NIH stroke scale 0 History and physical exam concerning for viral illness versus urinary tract infection. Unlikely metabolic derangements. No signs of ectopic, torsion, acute abdomen, appendicitis, diverticulitis, cholecystitis, pancreatitis. Headache likely viral in nature or typical headache. Unlikely intracranial hemorrhage, stroke, posterior stroke. No signs of meningitis, encephalitis. Plan labs, imaging Differential Diagnosis Differential Diagnoses: The differential diagnosis associated with the presentation includes History and physical exam concerning for viral illness versus urinary tract infection. Unlikely metabolic derangements. No signs of ectopic, torsion, acute abdomen, appendicitis, diverticulitis, cholecystitis, pancreatitis. Headache likely viral in nature or typical headache. Unlikely intracranial hemorrhage, stroke, posterior stroke. No signs of meningitis, encephalitis. Admission/Observation Consideration of admission/observation: Escalation of care including admission/observation considered possible Lab Data [facility] Lab Attestation statement: I reviewed the patient's lab results. 12/23/23 23:46 12/23/23 23:46 Labs: Lab Results 12/23/23 12/24/23 Range/Units 23:46 00:20 WBC 13.3 H (4.8-10.8) X10*3/uL RBC 5.41 (4.20-5.50) X10*6/uL Hgb 14.0 (12.0-16.0) g/dl Hct 42.9 (37.0-47.0) % MCV 79.3 L (80.0-98.0) fL MCH 25.9 L (27.0-33.0) pg MCHC 32.6 (31.0-35.0) g/dl RDW 14.8 (11.0-16.0) % Plt Count 300 (160-400) X10*3/uL MPV 9.7 (9.4-12.3) fL Immature Gran % (Auto) 1.0 H (0.0-0.4) % Neut % (Auto) 66.5 (45-73) % Lymph % (Auto) 21.0 (20-40) % [place] % (Auto) 7.6 (2-11) % Eos % (Auto) 3.2 (0-4) % Baso % (Auto) 0.7 (0-2) % Lymph # (Auto) 2.8 (1.2-4.9) X10*3/uL [place] # (Auto) 1.0 (0.1-1.2) X10*3/uL Eos # (Auto) 0.4 (0.0-0.4) X10*3/uL Baso # (Auto) 0.1 (0.0-0.2) X10*3/uL Abs Immat Gran (auto) 0.13 H (0.00-0.03) X10*3/uL Absolute Neuts (auto) 8.9 H (2.0-8.3) x10*3/uL Absolute Nucleated RBC 0.000 (0.0-0.012) X10*3/uL Nucleated RBC % (auto) 0.0 (0.0-0.2) /100WBC Sodium 138 (135-145) mmol/L Potassium 3.6 (3.3-5.1) mmol/L Chloride 105 (96-108) mmol/L Carbon Dioxide 25 (22-29) mmol/L Anion Gap 12 (12-20) BUN 13 (9-16) mg/dL Creatinine 0.84 (0.5-1.4) mg/dL Estim Creat Clear Calc 97.2 Estimated GFR > 60 Random Glucose 113 (60-115) mg/dL Calcium 9.7 (8.4-10.2) mg/dL Total Bilirubin 0.6 (0.0-1.0) mg/dL AST 16 (5-31) U/L ALT 33 H (0-31) U/L Alkaline Phosphatase 69 (39-117) U/L Total Protein 8.0 (6.5-8.0) g/dL Albumin 4.2 (3.5-5.0) g/dL Urine Color Yellow Urine Appearance Clear Urine pH 7.0 (5.0-9.0) Ur Specific [place] 1.020 (1.005-1.025) Urine Protein Trace (Neg-Trace) mg/dL Urine Glucose (UA) Negative (Negative) mg/dL Urine Ketones Trace (Negative) mg/dL Urine Blood Trace H (Negative) Urine Nitrite Negative (Negative) Ur Leukocyte Esterase Negative (Negative) Urine RBC 6-10 H (0-2) /HPF Urine WBC 0-5 (0-5) /HPF Ur Squamous Epith Cells 6-10 (0-2) /HPF Urine Bacteria 1+ (None Seen) Hyaline Casts 0-2 (0-2) /LPF Urine Test NEGATIVE (NEGATIVE) Independent Interpretation I performed an independent interpretation of an: Plain X-Ray ( XR/XR chest 1V IMPRESSION: No acute findings. Prominent cardiomediastinal silhouette, similar to prior. ) and CT Scan Radiology Impression Discussion of test interpretation with radiology: I have reviewed the radiologist's reading. External Record Review External record reviewed: Outpatient record Medications Administered Discontinued Medications Generic Name Dose Route Start Last Admin Trade Name Freq PRN Reason Stop Dose Admin Iohexol 85 ml 12/24/23 01:19 12/24/23 01:19 Iohexol 350 Mg/Ml 100 Ml Infus..Btl IV 12/24/23 01:20 85 ml ONCE ONE Administration Discharge Plan Discharge Clinical Impression: Abdominal pain, Headache, Dizziness, Shortness of breath Patient Disposition: Still a Patient Prescriptions: No Action cyclobenzaprine 10 mg tablet 10 mg PO TID PRN (Reason: muscle spasm) Qty: 14 0RF nifedipine 60 mg tablet extended release 24hr 60 mg PO DAILY Qty: 30 0RF [id number] [Fioricet] 50-300-40 mg capsule 1 cap PO Q4-6H PRN (Reason: headache) Qty: 15 0RF hydrochlorothiazide 25 mg tablet 25 mg PO DAILY topiramate 25 mg tablet 25 mg PO DAILY oxycodone-acetaminophen 5-325 mg tablet 1 tab PO TID PRN losartan 25 mg tablet 25 mg PO DAILY ergocalciferol (vitamin D2) 1,250 mcg (50,000 unit) capsule 1,250 mcg PO QWEEK lorazepam 0.5 mg tablet 0.5 mg PO DAILY PRN propranolol 60 mg capsule,extended release 24 hr 60 mg PO DAILY naloxone [Narcan] 4 mg/actuation spray,non-aerosol 1 spray intranasal ONCE PRN ibuprofen 800 mg tablet 800 mg PO TID losartan 100 mg tablet 100 mg PO DAILY amlodipine 10 mg tablet 10 mg PO DAILY sumatriptan succinate 50 mg tablet 50 mg PO Print Language: [place]
[2023-12-24] MEDS: iohexoL 350 MG/ML 100 ML INFUS..BTL 85 ML IV (01:19)
--- NOTE | 2023-12-24 01:36 | ECG_ITS ---
Test Reason : SOB Blood Pressure : / mmHG Vent. Rate : 089 BPM Atrial Rate : 089 BPM P-R Int : 176 ms QRS Dur : 088 ms QT Int : 378 ms P-R-T Axes : 034 -21 041 degrees QTc Int : 459 ms Normal sinus rhythm Possible Left atrial enlargement Left ventricular hypertrophy ( R in aVL , Christopher product ) Abnormal ECG When compared with ECG of 04-JUL-2023 15:18, Minimal criteria for Septal infarct are no longer Present Referred By: Chela Martins Electronically Signed By:Ghassan Turner
[2023-12-24 01:44] VITALS: BP 160/106; PULSE 90
[2023-12-24 01:53] VITALS: BP 180/130; PULSE 91
[2023-12-24 01:55] VITALS: BP 187/131; PULSE 94
[2023-12-24] MEDS: amLODIPine Besylate 10 MG TABLET PO (02:00)
[2023-12-24 02:31] LABS: Influenza A PCR NEGATIVE (Negative); Influenza B PCR NEGATIVE (Negative); Resp Syncy Virus RNA Qual PCR NEGATIVE (Negative); SARS COV2 PCR INHOUSE NEGATIVE (Negative)
[2023-12-24 03:42] VITALS: BP 161/89; PULSE 91; RESP 17; TEMP 36.8; O2SAT 94
[2023-12-24 04:03] VITALS: BP 161/89; PULSE 91; RESP 17; TEMP 36.8; O2SAT 94
== END 2023-12-24 04:04 | disposition home or self-care (01) ==
PROVIDERS: Physician Assistant; Emergency Provider Emergency Medicine; PCP Physician Assistant
DX: R10.13 Epigastric pain (principal); R51.9 Headache, unspecified; R42 Dizziness and giddiness; R06.02 Shortness of breath; R94.31 Abnormal electrocardiogram [ECG] [EKG]; Z03.818 Encounter for observation for suspected exposure to other biological agents ruled out; Z79.899 Other long term (current) drug therapy
CPT/HCPCS: 0241U; 36415; 70450; 71045; 74177; 80053; 81001; 81025; 84484; 85025; 93005; 99284; Q9967

== ENCOUNTER → 2023-12-24 01:36 | Outpatient (BNV) | payer MEDICAID, SELFPAY | PROVIDERS: Emergency Provider Emergency Medicine; PCP Physician Assistant; Visit Provider Internal Medicine Cardiovascular Disease | DX: R06.02 Shortness of breath (principal); R94.31 Abnormal electrocardiogram [ECG] [EKG] | CPT/HCPCS: 93010 ==